=== PATIENT | female | born 2000 | race Caucasian/White ===

== ENCOUNTER 2022-12-25 05:50 | Day surgery (SDC) | payer OTHER ==
[2022-12-16 14:39] VITALS: BP 117/75
[~2022-12-25] VITALS: Ht 160 cm; Wt 72.7 kg
--- NOTE | ~2022-12-25 | OR ---
[facility] [address] [place], [place] [address] Draft DATE OF OPERATION: 12/25/2022 SURGEON: Winter Mace DO PREOPERATIVE DIAGNOSES: 1. Granulation tissue of the perineum and vagina. 2. Pelvic pain. 3. Complications of the puerperium. POSTOPERATIVE DIAGNOSES: 1. Granulation tissue of the perineum and vagina. 2. Pelvic pain. 3. Complications of the puerperium. PROCEDURES PERFORMED: 1. Perineorrhaphy. 2. Repair of vaginal and perineal granulation tissue. MYSQL DEVELOPER: Josafat Almaguer M.D. ANESTHESIA: Spinal. ESTIMATED BLOOD LOSS: 20 mL. FINDINGS: Nonhealing painful granulation tissue of the perineum and granulation tissue of the right vaginal sidewall. Otherwise, normal external genitalia vagina and cervix. Anal fissure. COMPLICATIONS: None. INDICATIONS: Ms. Ramirez is a very pleasant 22-year-old female, status post spontaneous vaginal delivery, who developed granulation tissue and pelvic pain in the puerperium. The patient failed conservative management and decision was made to recommend surgical revision in the OR. Risks, benefits, and alternatives were discussed in detail with the PATIENT NAME: ANNALEE RAMIREZ OPERATIVE REPORT DATE OF : [birth year] REPORT #: [id number] PHYSICIAN: WINTER MACE) PCP: WINTER MACE DO (JD) REPORT IS CONFIDENTIAL AND NOT TO BE RELEASED WITHOUT AUTHORIZATION [facility] [address] [place], [place] [address] Draft patient. The patient understands and wishes to proceed with the procedure. TECHNIQUE: The patient was taken to the operating room where a time-out was performed to confirm correct patient and correct procedure. Spinal anesthesia was adequately established. The patient was prepped and draped in the dorsal lithotomy position with her feet in Yellofin stirrups. ICPs were on and running and no preoperative antibiotics or heparin were indicated. The bladder was drained. A weighted speculum was placed in the vagina and the vagina was examined. Palpation of granulation tissue on the right vaginal sidewall demonstrated two areas of granulation with a nonhealing lesion. This was excised in elliptical manner using a 15 blade. The vaginal epithelium was then made hemostatic with Bovie electrocautery. The vaginal epithelium was then reapproximated using 2-0 Vicryl in a running locked manner after application of FloSeal to the underlying vaginal tissue. Excellent hemostasis and cheondoism of normal anatomy was appreciated. The previously noted puckering of the vaginal sidewall was completely resolved. Attention was then turned to perineorrhaphy. The edges of the introitus were grasped with Allis clamps and an inverted triangle of vaginal epithelium was excised using #15 scalpel. The perineal tissue was made hemostatic with judicious use of Bovie electrocautery. The perineorrhaphy was repaired in a standard manner using 2-0 Vicryl in interrupted sutures and deeper layer and 4-0 Vicryl in a subcuticular stitch of the epithelium. Excellent repair results were observed with no residual granulation tissue. 12 mL of 0.25% Marcaine with epinephrine was then injected into the perineal body. The patient was then taken to the PACU in good and stable condition. Sponge, needle, and instrument count was correct x2 at the end of the procedure. Dr. Almaguer was present and participated in all portions of the procedure. Winter Mace DO JDCristhian/MODL /[id number] Copies: PATIENT NAME: ANNALEE RAMIREZ OPERATIVE REPORT DATE OF : [birth year] REPORT #: [id number] PHYSICIAN: WINTER MACE (DANIEL) PCP: WINTER MACE (DANIEL) DO REPORT IS CONFIDENTIAL AND NOT TO BE RELEASED WITHOUT AUTHORIZATION [facility] [address] [place] [address] [place] [address] Draft ~ PATIENT NAME: ANNALEE RAMIREZ RAE OPERATIVE REPORT DATE OF : [birth year] REPORT #: [id number] PHYSICIAN: WINTER MACE (DANIEL) DO PCP: WINTER MACE (DANIEL) DO REPORT IS CONFIDENTIAL AND NOT TO BE RELEASED WITHOUT AUTHORIZATION
[~2022-12-25 05:50] MED LIST: ANECREAM5 GM TOP
[2022-12-25 06:03] VITALS: BP 125/80
[2022-12-25] MEDS ORDERED: STOOL SOFTENER100 MG PO (06:04)
[2022-12-25] MEDS ORDERED: PROBIOTIC1 EAC2 PO (06:04)
--- NOTE | 2022-12-25 09:09 | NUR ---
12/25/22 0909 Lacey Barnes PT TO PACU ORAL AIRWAY IN PLACE. O2 VIA MASK, FOGGING NOTED IN MASK.
[2022-12-25 09:50] VITALS: BP 116/76
== END 2022-12-25 10:00 | disposition home or self-care (01) ==
LOC: DS 05:50 → MS 07:30 → EDSTATUS 07:30 → DS 10:00
PROVIDERS: ATTEND Obstetrics & Gynecology
PROC: 0KQM0ZZ Repair Perineum Muscle, Open Approach (ICD-10-PCS; 2022-12-25)
PROC: 0UQG0ZZ Repair Vagina, Open Approach (ICD-10-PCS; principal; 2022-12-25 07:30)
DX: O9A.23 Injury, poisoning and certain other consequences of external causes complicating the puerperium (principal); T81.89XA Other complications of procedures, not elsewhere classified, initial encounter; A58 Granuloma inguinale; O99.893 Other specified diseases and conditions complicating puerperium; K66.8 Other specified disorders of peritoneum
CPT/HCPCS: 00942; J1100; J1885; J2001; J2250; J2405; J2704; J2765; J3010; J7121

== ENCOUNTER 2024-07-02 10:14 | Emergency (ER) | payer OTHER ==
[~2024-07-02] VITALS: Ht 160 cm; Wt 77.4 kg
[~2024-07-02 10:14] MED LIST changes: +PROBIOTIC1 EAC2 PO; +STOOL SOFTENER100 MG PO
[2024-07-02] MEDS ORDERED: AZESCO TABLET1 EACH PO (10:27)
[2024-07-02 10:44] LABS: BASOPHILS 0.7 % (0-2); EOSINOPHILS 0.9 % (0-6); HEMOGLOBIN 12.7 g/dL (12.0-18.0); LYMPHOCYTES 28.6 % (24-44); MCH 31.1 (27-36); MCHC 34.2 g/dl (30-36); MCV 90.9 fl (81-99); MONOCYTES 5.4 % (0-12); NEUTROPHILS 64.4 % (39-80); PLATELET COUNT 305 K/uL (140-440); RBC 4.07 M/ul (4.3-5.7); RDW 13.1 (10.5-15.0)
[2024-07-02 11:00] LABS: ALBUMIN 3.7 g/dL (3.4-5.0); ALBUMIN/GLOBULIN RATIO 1.03 (1.1-2.4); ANION GAP 14.3 (7-21); BILIRUBIN, TOTAL 0.2 ng/dL (0.2-1.0); BUN/CREATININE RATIO 10.97 (6.0-28.6); CREATININE, SERUM 0.82 mg/dL (0.55-1.02); POTASSIUM 3.3 mmol/L (3.5-5.1); PROTEIN, TOTAL 7.3 g/dL (6.4-8.2)
[2024-07-02 11:02] LABS: ABO O; RH POSITIVE
[2024-07-02 12:24] LABS: BILIRUBIN, URINE NEGATIVE (negative); BLOOD/HGB, URINE NEGATIVE (Negative); KETONE, URINE NEGATIVE (Negative); LEUK ESTERASE, URINE NEGATIVE (negative); NITRITE, URINE NEGATIVE (negative)
[2024-07-02 13:45] VITALS: BP 114/61
== END 2024-07-02 13:35 | disposition home or self-care (01) ==
LOC: ED 10:14
PROVIDERS: Emergency Medicine
DX: O26.851 Spotting complicating pregnancy, first trimester (principal); Z3A.08 8 weeks gestation of pregnancy; Z79.899 Other long term (current) drug therapy
CPT/HCPCS: 36415; 76801; 76817; 80053; 81003; 85025; 86900; 86901; 99284-25

== ENCOUNTER 2025-02-06 20:13 | Inpatient (IN) | payer OTHER ==
[~2025-02-06] VITALS: Ht 160 cm; Wt 83.0 kg
[~2025-02-06 20:13] MED LIST changes: +AZESCO TABLET1 EACH PO
[2025-02-06 20:54] LABS: AMNISURE ROM TEST POSITIVE
[2025-02-06 21:42] LABS: MCH 31.3 PG (25.6-32.2); MCHC 34.7 g/dL (32.2-35.5); MCV 90.2 fL (79.4-94.8); RBC 4.18 M/uL (3.93-5.22)
[2025-02-06] MEDS ORDERED: CALCIUM CARBONATE 500 MG CHEW PO PRN (21:45)
[2025-02-06] MEDS ORDERED: LACTATED RINGER'S 1,000 ML IV SCH (21:45)
[2025-02-06] MEDS ORDERED: MAGNESIUM HYDROXIDE/AL HYDROX 30 ML CUP PO PRN (21:45)
[2025-02-06] MEDS ORDERED: LACTATED RINGER'S 1,000 ML IV PRN (21:45)
[2025-02-06] MEDS ORDERED: OXYTOCIN/0.9 % SODIUM CHLORIDE 30 UNITS/500 ML BAG IV SCH (21:45)
[2025-02-06] MEDS ORDERED: BUPIVACAINE HCL 0.25% 10 ML SDV INJ ONE (22:01)
[2025-02-06] MEDS ORDERED: ROPIVACAINE 0.2% 200 ML BAG ONE (22:02)
[2025-02-06 22:20] LABS: ABO O; ANTIBODY SCREEN NEGATIVE; RH POSITIVE
[2025-02-06] MEDS ORDERED: SOD+POT BICARB/CITRIC ACID 2 EA TABLET.EFF ONE (23:09)
[2025-02-06] MEDS ORDERED: LIDOCAINE HCL 1% 30 ML SDV ONE (23:10)
[2025-02-07 00:02] VITALS: BP 107/62
[2025-02-07] MEDS ORDERED: CALCIUM CARBONATE 500 MG CHEW PO PRN (03:30)
[2025-02-07] MEDS ORDERED: MAGNESIUM HYDROXIDE 30 ML UDC PO PRN (03:30)
[2025-02-07] MEDS ORDERED: BENZOCAINE 60 ML AEROSOL TOP PRN (03:30)
[2025-02-07] MEDS ORDERED: ACETAMINOPHEN 325 MG TAB PO PRN (03:30)
[2025-02-07] MEDS ORDERED: HYDROCORTISONE ACETATE 25 MG SUPP PR PRN (03:30)
[2025-02-07] MEDS ORDERED: WITCH HAZEL/GLYCERIN 1 EA PAD TOP PRN (03:30)
[2025-02-07] MEDS ORDERED: OXYCODONE/APAP 5/325 TAB PO PRN (03:30)
[2025-02-07] MEDS ORDERED: OXYTOCIN/0.9 % SODIUM CHLORIDE 500 ML IV SCH (03:30)
[2025-02-07] MEDS ORDERED: IBUPROFEN 600 MG TAB PO PRN (03:30)
[2025-02-07] MEDS ORDERED: MAGNESIUM HYDROXIDE/AL HYDROX 30 ML CUP PO PRN (03:30)
[2025-02-07] MEDS ORDERED: HYDROCODONE/ACETA 5/325 TAB PO PRN (03:30)
[2025-02-07 04:18] LABS: AMPHETAMINES, URINE NEGATIVE (NEGATIVE); BARBITURATES, URINE NEGATIVE (NEGATIVE); BENZODIAZEPINE, URINE NEGATIVE (NEGATIVE); CANNABINOID, URINE NEGATIVE (NEGATIVE); COCAINE, URINE NEGATIVE (NEGATIVE); ECSTASY, URINE NEGATIVE (NEGATIVE); FENTANYL, URINE NEGATIVE (NEGATIVE); METHADONE, URINE NEGATIVE (NEGATIVE); OPIATES, URINE NEGATIVE (NEGATIVE); OXYCODONE, URINE NEGATIVE (NEGATIVE); PHENCYCLIDINE, URINE NEGATIVE (NEGATIVE)
[2025-02-07 05:48] LABS: MCH 31.5 PG (25.6-32.2); MCHC 34.3 g/dL (32.2-35.5); MCV 91.7 fL (79.4-94.8); RBC 3.72 M/uL (3.93-5.22)
[2025-02-07] MEDS ORDERED: SENNOSIDES/DOCUSATE 1 EA TAB PO SCH (09:00)
--- NOTE | 2025-02-08 07:30 | PR ---
[facility] [address] [facility] [place], [place] [address] Signed PP Progress Notes Datetime Report Generated by CPN: 02/08/2025 07:30 SUBJECTIVE: [id number] Pain: Within Normal Limits Nausea/Vomiting: Denies Flatus: Yes Bowel Movement: No Vital Signs: [id number] Vital Signs: Reviewed; Within Normal Limits EXAM: Ongoing Cardiovascular: Normal Respiratory: Normal Abdomen/Uterus: Normal Lochia: Normal Vulva/Perineum: Not Done Breasts: Not Done CVA Tenderness: Normal Extremities: Normal Incision: Not Applicable Progress: Normal Exam Comments: Fundus firm U-2 nontender. IMPRESSION/PLAN/PROCEDURES: [id number] Impression: Normal Progression Plan: Discharge Progress Notes: Pt seen and examined. Doing well. Ambulating, voiding, and tolerating full diet.Pain and lochia minimal. well. No fever/chill or other concerns. Desires d/c home. Plan pp pelvic floor PT due to hx of pelvic floor dysfunction. No planning on pp contraception. D/C meds and education reviewed in detal. All questions answered. Signing Physician: Winter Mace DO Copies: ~ *Electronically Signed* 02/08/25 2001 WINTER MACE (DANIEL) DO PATIENT NAME: ANNALEE KHAN PROGRESS NOTE DATE OF : [birth year] PHYSICIAN: WINTER MACE (JD) DO RPT #: [id number] REPORT IS CONFIDENTIAL AND NOT TO BE RELEASED WITHOUT AUTHORIZATION
[2025-02-08] MEDS ORDERED: ROPIVACAINE 0.2% 200 ML BAG EPIDURAL SCH (12:30)
[2025-02-08] MEDS ORDERED: LACTATED RINGER'S 2,000 ML IV ONE (12:30)
[2025-02-08] MEDS ORDERED: LACTATED RINGER'S 500 ML IV PRN (12:30)
[2025-02-08] MEDS ORDERED: ePHEDrine sulfate 5 MG/ML SYRINGE IV PRN (12:30)
== END 2025-02-08 10:28 | disposition home or self-care (01) | DRG 807 ==
LOC: FBCO 20:13 → FBC 21:08 → FBCO 03-03 18:34
PROVIDERS: ADMIT Obstetrics & Gynecology; ATTEND Obstetrics & Gynecology
PROC: 10E0XZZ Delivery of Products of Conception, External Approach (ICD-10-PCS; principal; 2025-02-07)
PROC: 0KQM0ZZ Repair Perineum Muscle, Open Approach (ICD-10-PCS; 2025-02-07)
DX: O99.52 Diseases of the respiratory system complicating childbirth (principal); Z37.0 Single live birth; O69.81X0 Labor and delivery complicated by cord around neck, without compression, not applicable or unspecified; Z3A.40 40 weeks gestation of pregnancy; O70.1 Second degree perineal laceration during delivery; J45.909 Unspecified asthma, uncomplicated; Z14.8 Genetic carrier of other disease
CPT/HCPCS: 01960; 36415; 80307; 84112; 85027; 86850; 86900; 86901; A9270; J7121